=== PATIENT | female | born 1955 | race African-American/Black ===

== ENCOUNTER 2017-08-14 00:26 | Emergency (ER) | payer OTHER ==
[~2017-08-14] VITALS: Ht 170.2 cm; Wt 75.0 kg
[2017-08-14] MEDS ORDERED: ONDANSETRON HCL 4MG/2ML VIAL IV STA (00:48)
[2017-08-14] MEDS ORDERED: KETOROLAC 30MG/ML VIAL IV STA (00:48)
[2017-08-14 01:19] LABS: HEMATOCRIT. 35.3 % (36.0-48.0); HEMOGLOBIN. 12.3 g/dL (12.0-16.0); MEAN CORPUSCULAR HEMOGLOBIN 32.2 pg (28.0-32.0); MEAN CORPUSCULAR VOLUME 92.6 fL (81.0-99.0); MEAN PLATELET VOLUME 8.1 fl (7.4-10.4); PLATELET 195 x1000/uL (130-400); RED BLOOD CELL COUNT 3.81 mill/uL (4.2-5.4); RED CELL DISTRIBUTION WIDTH 13.7 % (11.6-14.6)
[2017-08-14 01:21] LABS: CHLORIDE 98 mEq/L (98-107)
[2017-08-14 01:25] LABS: PROTHROMBIN TIME 10.7 sec (9.4-11.6)
[2017-08-14 01:29] LABS: CARBON DIOXIDE 28 mEq/L (21-32)
[2017-08-14 03:14] LABS: PLATELET ESTIMATE NORMAL
[2017-08-14 03:54] VITALS: BP 154/77
== END 2017-08-14 04:17 | disposition home or self-care (01) ==
LOC: ER 00:26
DX: R10.32 Left lower quadrant pain (principal); K43.9 Ventral hernia without obstruction or gangrene; R18.8 Other ascites; K57.90 Diverticulosis of intestine, part unspecified, without perforation or abscess without bleeding; Z99.2 Dependence on renal dialysis; I12.0 Hypertensive chronic kidney disease with stage 5 chronic kidney disease or end stage renal disease; N18.6 End stage renal disease; K44.9 Diaphragmatic hernia without obstruction or gangrene
CPT/HCPCS: 36415; 74176; 80053; 83690; 85025; 85610; 87070; 87077; 87186; 87205; 89050; 96374; 96375; 99285; J1885; J2405; Z7610

== ENCOUNTER 2021-08-10 19:45 | Emergency (ER) | payer OTHER ==
[~2021-08-10] VITALS: Ht 157.5 cm; Wt 100.0 kg
[2021-08-10 22:01] LABS: BASOPHILS % 0.2 % (0.0-2.0); EOSINOPHILS % 0.2 % (0.0-5.0); HEMATOCRIT. 40.3 % (36.0-48.0); HEMOGLOBIN. 12.7 g/dL (12.0-16.0); LYMPHOCYTES % 7.1 % (20.0-50.0); MEAN CORPUSCULAR HEMOGLOBIN 25.3 pg (28.0-32.0); MEAN CORPUSCULAR VOLUME 80.2 fL (81.0-99.0); MEAN PLATELET VOLUME 7.9 fl (7.4-10.4); MONOCYTES % 6.1 % (2.0-8.0); NEUTROPHILS % 86.4 % (40.0-76.0); PLATELET 302 x1000/uL (130-400); RED BLOOD CELL COUNT 5.02 mill/uL (4.2-5.4); RED CELL DISTRIBUTION WIDTH 18.4 % (11.6-14.6)
[2021-08-10 22:06] LABS: CHLORIDE 99 mEq/L (98-107)
[2021-08-11 01:50] LABS: CLARITY URINE CLEAR (CLEAR); COLOR URINE YELLOW (YELLOW); KETONES URINE NEGATIVE (NEGATIVE); LEUKOCYTE ESTERASE URINE 1+ (NEGATIVE); NITRITE URINE NEGATIVE (NEGATIVE); OCCULT BLOOD URINE NEGATIVE (NEGATIVE); PH URINE 7.5 (4.5-8.0); PROTEIN URINE 2+ (NEGATIVE); UROBILINOGEN URINE 0.2 E.U./dL (0.2-1.0)
[2021-08-11 05:35] VITALS: BP 112/67
== END 2021-08-11 05:59 | disposition home or self-care (01) ==
LOC: ER 19:45
DX: R55 Syncope and collapse (principal)
CPT/HCPCS: 36415; 71045; 80053; 81003; 82962; 85025; 93005; 99285

== ENCOUNTER 2022-04-21 18:44 | Inpatient (IN) | payer OTHER ==
[~2022-04-21] VITALS: Ht 165.1 cm; Wt 92.7 kg
[2022-04-21] MEDS ORDERED: SODIUM CHLORIDE 0.9% 1000ML BAG (SEPSIS BOLUS) IV ONE (21:30)
[2022-04-21] MEDS ORDERED: LEVOFLOXACIN 750MG PREMIX 150 ML IV ONE (21:45)
[2022-04-21 23:24] LABS: CHLORIDE 99 mEq/L (98-107)
[2022-04-21 23:32] LABS: INR 1.2
[2022-04-21 23:40] LABS: HEMATOCRIT. 28.6 % (36.0-48.0); HEMOGLOBIN. 9.3 g/dL (12.0-16.0); MEAN CORPUSCULAR HEMOGLOBIN 26.2 pg (28.0-32.0); MEAN CORPUSCULAR VOLUME 80.7 fL (81.0-99.0); PLATELET 212 x1000/uL (130-400); RED BLOOD CELL COUNT 3.54 mill/uL (4.2-5.4)
[2022-04-22] MEDS ORDERED: ONDANSETRON HCL 4MG/2ML INJ IV STA (00:33)
[2022-04-22] MEDS ORDERED: MORPHINE SULFATE 4 MG/ML CPJ (NOT FOR IM USE) IV STA (00:33)
[2022-04-22 01:00] LABS: PLATELET ESTIMATE NORMAL
[2022-04-22 01:04] LABS: HCG SCREEN NEGATIVE
[2022-04-22] MEDS ORDERED: VANCOMYCIN 1G PREMIX 200 ML IV SCH (02:45)
[2022-04-22] MEDS ORDERED: ACETAMINOPHEN 650MG SUPP PR PRN ×2 (06:30)
[2022-04-22] MEDS ORDERED: ACETAMINOPHEN 325MG TABLET PO PRN (06:30)
[2022-04-22] MEDS ORDERED: CLONIDINE 0.1MG TABLET PO PRN (06:30)
[2022-04-22] MEDS ORDERED: POTASSIUM CHLORIDE 20MEQ TABLET SR PO SCH (06:30)
[2022-04-22] MEDS ORDERED: CEFTRIAXONE 1 G PREMIX 50 ML IV ONE (06:30)
[2022-04-22] MEDS ORDERED: MAGNESIUM/ALUMINUM HYDROXIDE/SIMETHICONE 30ML UDC PO PRN (06:30)
[2022-04-22] MEDS ORDERED: DIPHENHYDRAMINE 50MG/ML VIAL IV PRN (06:30)
[2022-04-22] MEDS ORDERED: IPRATROPIUM/ALBUTEROL 0.5-3(2.5)MG/3ML NEB HHN PRN (06:30)
[2022-04-22] MEDS ORDERED: DOCUSATE SODIUM 100MG CAPSULE PO PRN (06:30)
[2022-04-22] MEDS ORDERED: MORPHINE SULFATE 2 MG/ML CPJ (NOT FOR IM USE) IV PRN (06:30)
[2022-04-22] MEDS ORDERED: ONDANSETRON HCL 4MG/2ML INJ IV PRN (06:30)
[2022-04-22] MEDS ORDERED: GUAIFENESIN 200MG/10ML SUGAR FREE UDC PO PRN (06:30)
[2022-04-22] MEDS ORDERED: NALOXONE HCL 0.4MG/ML VIAL IV PRN (08:00)
[2022-04-22 09:08] LABS: HEMATOCRIT. 24.9 % (36.0-48.0); HEMOGLOBIN. 8.1 g/dL (12.0-16.0); MEAN CORPUSCULAR HEMOGLOBIN 26.1 pg (28.0-32.0); MEAN CORPUSCULAR VOLUME 80.2 fL (81.0-99.0); MEAN PLATELET VOLUME 8.8 fl (7.4-10.4); PLATELET 176 x1000/uL (130-400); RED CELL DISTRIBUTION WIDTH 21.1 % (11.6-14.6)
[2022-04-22 09:14] LABS: CHLORIDE 98 mEq/L (98-107)
[2022-04-22 09:29] LABS: HDL CHOLESTEROL 25 mg/dL (40-59); LDL CHOLESTEROL 21 mg/dL (5-100); PHOSPHORUS 1.6 mg/dL (2.5-4.9)
[2022-04-22 09:30] VITALS: BP 111/65
[2022-04-22] MEDS: AMLODIPINE 5MG TABLET PO SCH (10:30)
[2022-04-22] MEDS: CLOPIDOGREL 75MG TABLET PO SCH (10:30)
[2022-04-22] MEDS ORDERED: MAGNESIUM 1 G PREMIX 100 ML IV SCH (12:00)
[2022-04-22 12:32] LABS: HEPATITIS B SURFACE ANTIGEN NEGATIVE
[2022-04-22 13:39] LABS: PLATELET ESTIMATE NORMAL
[2022-04-22 14:00] VITALS: BP 93/60
[2022-04-22 16:00] VITALS: BP 109/58
[2022-04-22 18:00] VITALS: BP 99/63
[2022-04-22] MEDS ORDERED: VANCOMYCIN 500MG PREMIX 100 ML IV NR (18:00)
[2022-04-22] MEDS ORDERED: CEFEPIME 1,000 MG in DEXTROSE 5% WATER 50 ML IV SCH (18:00)
[2022-04-22 20:00] VITALS: BP 106/49
[2022-04-22] MEDS: ATORVASTATIN CALCIUM 40MG TABLET PO SCH (21:00)
[2022-04-22] MEDS: EPOETIN ALFA-EPBX 10,000 UNIT/ML VIAL SUBCUT SCH (21:45)
[2022-04-22] MEDS: METRONIDAZOLE IV SCH (21:48)
[2022-04-22 22:00] VITALS: BP 107/67
[2022-04-23] VITALS (34 sets, daily range): BP systolic 78–138; BP diastolic 34–70
[2022-04-23 06:58] LABS: HEMOGLOBIN. 7.2 g/dL (12.0-16.0); MEAN CORPUSCULAR HEMOGLOBIN 26.3 pg (28.0-32.0); MEAN CORPUSCULAR VOLUME 80.8 fL (81.0-99.0); MEAN PLATELET VOLUME 9.1 fl (7.4-10.4); PLATELET 158 x1000/uL (130-400); RED BLOOD CELL COUNT 2.72 mill/uL (4.2-5.4); RED CELL DISTRIBUTION WIDTH 21.2 % (11.6-14.6)
[2022-04-23 07:30] LABS: PHOSPHORUS 1.7 mg/dL (2.5-4.9)
[2022-04-23] MEDS: AMLODIPINE 5MG TABLET PO SCH (08:24)
[2022-04-23] MEDS ORDERED: SODIUM CHLORIDE 0.9% 250 ML IV NR (08:28)
[2022-04-23] MEDS: CLOPIDOGREL 75MG TABLET PO SCH (08:46)
[2022-04-23] MEDS ORDERED: LIDOCAINE HCL/PF 1% 10 MG/ML 5ML VIAL ONE (09:39)
[2022-04-23] MEDS ORDERED: LEVOFLOXACIN 500MG PREMIX 100 ML IV SCH ×2 (11:00→21:00)
[2022-04-23] MEDS ORDERED: KCL 20MEQ/100ML PREMIX 100 ML IV NR (11:00)
[2022-04-23] MEDS ORDERED: LIDOCAINE HCL 1% 10 MG/ML 10ML VIAL ONE (11:53)
[2022-04-23 16:32] LABS: INR 1.2; PROTHROMBIN TIME 12.7 sec (9.6-11.0)
[2022-04-23] MEDS ORDERED: MIDODRINE HCL 5MG TABLET NG SCH (17:00)
[2022-04-23] MEDS ORDERED: GENTAMICIN 120MG PREMIX 100 ML IV NR (17:30)
[2022-04-23] MEDS: ACETAMINOPHEN 325MG TABLET PO PRN (18:14)
[2022-04-23] MEDS ORDERED: POTASSIUM CHLORIDE 20MEQ/PACKET PO NR (19:45)
[2022-04-23] MEDS: METRONIDAZOLE IV SCH (21:00)
[2022-04-23] MEDS ORDERED: NOREPINEPHRINE 8 MG in DEXT 5% WATER 242 ML IV PRN (21:30)
[2022-04-23] MEDS: ATORVASTATIN CALCIUM 40MG TABLET PO SCH (22:22)
[2022-04-24] VITALS (46 sets, daily range): BP systolic 67–136; BP diastolic 27–70
[2022-04-24] MEDS: HYDROCODONE/ACETAMINOPHEN 5/325MG TABLET PO PRN (00:39)
[2022-04-24] MEDS ORDERED: LIDOCAINE HCL 1% 10 MG/ML 10ML VIAL ONE (07:08)
[2022-04-24 07:12] LABS: HEMATOCRIT. 21.6 % (36.0-48.0); HEMOGLOBIN. 7.1 g/dL (12.0-16.0); MEAN CORPUSCULAR HEMOGLOBIN 26.2 pg (28.0-32.0); MEAN CORPUSCULAR VOLUME 80.1 fL (81.0-99.0); PLATELET 195 x1000/uL (130-400); RED CELL DISTRIBUTION WIDTH 21.1 % (11.6-14.6)
[2022-04-24 07:38] LABS: PHOSPHORUS 1.7 mg/dL (2.5-4.9)
[2022-04-24] MEDS ORDERED: SODIUM BICARBONATE 4% (2.4MEQ) 5ML VIAL IV ONE (08:19)
[2022-04-24] MEDS ORDERED: LIDOCAINE HCL/PF 1% 10 MG/ML 5ML VIAL ONE (08:20)
[2022-04-24] MEDS: METRONIDAZOLE IV SCH ×2 (09:00→21:07)
[2022-04-24] MEDS: MIDODRINE HCL 5MG TABLET PO SCH ×3 (09:23→17:10)
[2022-04-24] MEDS: CLOPIDOGREL 75MG TABLET PO SCH (09:23)
[2022-04-24 10:16] LABS: PLATELET ESTIMATE NORMAL
[2022-04-24] MEDS: ACETAMINOPHEN 325MG TABLET PO PRN (11:23)
[2022-04-24 15:23] LABS: PLATELET ESTIMATE NORMAL
[2022-04-24 16:53] LABS: BG BASE EXCESS 2.5 mmol/L (-2.0-2.0); BG CARBOXYHEMOGLOBIN 0.3 % (0.5-1.5); BG DEOXYHEMOGLOBIN 4.4 % (0.0-5.0); BG FRACTION INSPIRED OXYGEN 28; BG HCO3 ACT 28.7 mmol/L (22.0-26.0); BG METHEMOGLOBIN 0.4 % (0.0-1.5); BG OXYGEN SATURATION 95.6 % (92.0-98.5); BG OXYHEMOGLOBIN 94.9 % (94.0-97.0); BG PCO2 52.6 mmHg (35.0-45.0); BG PH 7.355 (7.350-7.450); BG PO2 81.6 mmHg (75.0-100.0); BG SAMPLE SITE RIGHT RADIAL; BG TOTAL HEMOGLOBIN 10.2 g/dL (12.0-18.0); BG VENT MODE NASAL CANNULA
[2022-04-24] MEDS: EPOETIN ALFA-EPBX 10,000 UNIT/ML VIAL SUBCUT SCH (21:06)
[2022-04-24] MEDS: ATORVASTATIN CALCIUM 40MG TABLET PO SCH (21:06)
[2022-04-25] VITALS (61 sets, daily range): BP systolic 92–136; BP diastolic 50–74
[2022-04-25] MEDS ORDERED: VANCOMYCIN 1G PREMIX 200 ML IV NR (00:15)
[2022-04-25 06:01] LABS: HEMOGLOBIN. 8.2 g/dL (12.0-16.0); MEAN CORPUSCULAR HEMOGLOBIN 25.1 pg (28.0-32.0); MEAN CORPUSCULAR VOLUME 75.9 fL (81.0-99.0); MEAN PLATELET VOLUME 8.3 fl (7.4-10.4); PLATELET 117 x1000/uL (130-400); RED BLOOD CELL COUNT 3.29 mill/uL (4.2-5.4); RED CELL DISTRIBUTION WIDTH 24.4 % (11.6-14.6)
[2022-04-25 06:26] LABS: GENTAMICIN RANDOM 1.9 ug/mL
[2022-04-25 06:33] LABS: PHOSPHORUS 0.8 mg/dL (2.5-4.9)
[2022-04-25] MEDS: MIDODRINE HCL 5MG TABLET PO SCH ×3 (10:07→18:22)
[2022-04-25] MEDS: METRONIDAZOLE IV SCH ×2 (10:07→21:09)
[2022-04-25] MEDS: CLOPIDOGREL 75MG TABLET PO SCH (10:07)
[2022-04-25 10:31] LABS: PLATELET ESTIMATE SLIGHTLY DECREASED
[2022-04-25] MEDS ORDERED: POTASSIUM PHOS,M-BASIC-D-BASIC 30 MMOL in SODIUM CHLORIDE 0.9% 500 ML IV ONE ×2 (11:30→12:00)
[2022-04-25] MEDS ORDERED: POTASSIUM PHOS,M-BASIC-D-BASIC 30 MMOL in DEXT 5% WATER 500 ML IV NR (13:00)
[2022-04-25] MEDS ORDERED: POTASSIUM PHOS,M-BASIC-D-BASIC 30 MMOL in SODIUM CHLORIDE 0.9% 500 ML IV NR (13:30)
[2022-04-25] MEDS ORDERED: POTASSIUM-SODIUM PHOSPHATE POWDER PACKET NG SCH (17:00)
[2022-04-25] MEDS: HYDROCODONE/ACETAMINOPHEN 5/325MG TABLET PO PRN (20:20)
[2022-04-25] MEDS: ATORVASTATIN CALCIUM 40MG TABLET PO SCH (20:20)
== END 2022-04-25 22:00 | disposition short-term general hospital (02) | DRG 314 ==
LOC: ER 18:44 → MICUSO 04-22 02:51 → 5EST 04-22 09:28 → CVICU 04-23 12:00
PROVIDERS: ADMIT Family Medicine Adult Medicine; ATTEND Family Medicine Adult Medicine
PROC: 02HV33Z Insertion of Infusion Device into Superior Vena Cava, Percutaneous Approach (ICD-10-PCS; principal; 2022-04-23)
PROC: B548ZZA Ultrasonography of Superior Vena Cava, Guidance (ICD-10-PCS; 2022-04-23)
PROC: 5A1935Z Respiratory Ventilation, Less than 24 Consecutive Hours (ICD-10-PCS; 2022-04-23)
PROC: 05PYX3Z Removal of Infusion Device from Upper Vein, External Approach (ICD-10-PCS; 2022-04-23)
PROC: 0W9G3ZZ Drainage of Peritoneal Cavity, Percutaneous Approach (ICD-10-PCS; 2022-04-24)
PROC: 30233N1 Transfusion of Nonautologous Red Blood Cells into Peripheral Vein, Percutaneous Approach (ICD-10-PCS; 2022-04-24)
PROC: 5A1D70Z Performance of Urinary Filtration, Intermittent, Less than 6 Hours Per Day (ICD-10-PCS; 2022-04-24)
PROC: 02H633Z Insertion of Infusion Device into Right Atrium, Percutaneous Approach (ICD-10-PCS; 2022-04-24)
DX: T80.211A Bloodstream infection due to central venous catheter, initial encounter (principal); A41.53 Sepsis due to Serratia; E43 Unspecified severe protein-calorie malnutrition; N18.6 End stage renal disease; J18.9 Pneumonia, unspecified organism; J96.01 Acute respiratory failure with hypoxia; G92.8 Other toxic encephalopathy; R65.21 Severe sepsis with septic shock; R18.8 Other ascites; I31.3 Pericardial effusion (noninflammatory); I13.2 Hypertensive heart and chronic kidney disease with heart failure and with stage 5 chronic kidney disease, or end stage renal disease; N17.9 Acute kidney failure, unspecified; I69.351 Hemiplegia and hemiparesis following cerebral infarction affecting right dominant side; C79.89 Secondary malignant neoplasm of other specified sites; E11.22 Type 2 diabetes mellitus with diabetic chronic kidney disease; Z20.822 Contact with and (suspected) exposure to COVID-19; E66.9 Obesity, unspecified; D50.9 Iron deficiency anemia, unspecified; I50.9 Heart failure, unspecified; E78.5 Hyperlipidemia, unspecified; E87.6 Hypokalemia; F03.90 Unspecified dementia, unspecified severity, without behavioral disturbance, psychotic disturbance, mood disturbance, and anxiety; G47.33 Obstructive sleep apnea (adult) (pediatric); K74.60 Unspecified cirrhosis of liver; D63.1 Anemia in chronic kidney disease; E80.6 Other disorders of bilirubin metabolism; E88.09 Other disorders of plasma-protein metabolism, not elsewhere classified; K52.9 Noninfective gastroenteritis and colitis, unspecified; I95.9 Hypotension, unspecified; K57.30 Diverticulosis of large intestine without perforation or abscess without bleeding; E83.39 Other disorders of phosphorus metabolism; K59.00 Constipation, unspecified; Z79.02 Long term (current) use of antithrombotics/antiplatelets; Z68.33 Body mass index [BMI] 33.0-33.9, adult; Z99.2 Dependence on renal dialysis; Z88.3 Allergy status to other anti-infective agents; Z88.0 Allergy status to penicillin; Z87.891 Personal history of nicotine dependence; Z83.3 Family history of diabetes mellitus; Z82.49 Family history of ischemic heart disease and other diseases of the circulatory system; Z79.899 Other long term (current) drug therapy; Z88.6 Allergy status to analgesic agent; R94.31 Abnormal electrocardiogram [ECG] [EKG]; M79.89 Other specified soft tissue disorders; C53.9 Malignant neoplasm of cervix uteri, unspecified
CPT/HCPCS: 36415; 36556; 36573; 36589; 36600; 49083; 71045; 71250; 74176; 74181; 76937; 80048; 80053; 80061; 80076; 80170; 80202; 82040; 82105; 82140; 82248; 82375; 82378; 82805; 83605; 83615; 83735; 83880; 84100; 84145; 84443; 84484; 84703; 85025; 86301; 86304; 86705; 86709; 86803; 86850; 86900; 86920; 87070; 87077; 87186; 87340; 87426; 92610; 93005; 93306; 93970; 99291; C1725; C1752; C1887; J0692; J0885; J1580; J1956; J2270; J2405; J3370; J3475; J3480; J3490; J7030; J7040; J7060; P9016; A4315